=== PATIENT | male | born 1950 | race Caucasian/White ===

== ENCOUNTER → 2017-06-11 | Outpatient (CLI) | payer OTHER ==
[~2017-06-11] MED LIST: ALPR1TAB3 PO; ASPI81TA28 PO; BIOF500T PO; CHOL1000 PO; ENAL5TAB83 PO; IBUP-1277 PO; KRIL1CAP3 PO; MAGN400T5 PO; METO-478 PO; OMEP20CA9 PO; RANI300T PO
--- NOTE | 2017-06-11 12:01 | DIAGNOSTIC IMAGING REPORT ---
KUB CLINICAL HISTORY: R10.9 Flank painR10.31 Bilateral lower abdominal [id number] COMPARISON STUDY: No previous studies for comparison. FINDINGS: The soft tissues, psoas shadows, renal outlines and intestinal gas pattern appear normal. There is no evidence for bowel obstruction. No abnormal abdominal calcifications are seen. IMPRESSION: Normal study. The above report was generated using voice recognition software. It may contain grammatical, syntax or spelling errors. Electronically signed by: Arsh Pollack M.D. 06/11/2017 11:59 AM Dictated Date/Time: 06/11/2017 11:59 AM
== END | disposition home or self-care (01) ==
LOC: C.RAD 11:24
PROVIDERS: ATTEND Urology
DX: R10.31 Right lower quadrant pain (principal); R10.32 Left lower quadrant pain

== ENCOUNTER → 2017-06-30 | Outpatient (CLI) | payer OTHER ==
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
--- NOTE | 2017-06-30 15:46 | DIAGNOSTIC IMAGING REPORT ---
MRI OF THE LUMBAR SPINE WITHOUT IV CONTRAST CLINICAL HISTORY: Lumbar radiculopathy. Neuropathy of the right foot. COMPARISON STUDY: No priors. TECHNIQUE: MRI of the lumbar spine is performed utilizing various T1 and T2-weighted sequences in the axial and sagittal planes. IV contrast was not administered for this examination. FINDINGS: Lumbar spine: Vertebral body height and alignment are maintained throughout the lumbar spine. There is mild straightening of the lumbar lordosis. Marrow signal intensity is slightly heterogeneous. No destructive bony lesion is seen. The transverse and spinous processes are intact as visualized. There is no evidence of spondylolysis. No destructive bony process is identified. Tiny anterior osteophytes are seen throughout. Mild chronic degenerative endplate change is seen at several levels. A tiny hemangioma is suggested in the body of L3. Intervertebral discs: Degenerative disc desiccation is seen throughout the lumbar spine. Mild loss of height is seen at L4-L5 and L5-S1. Spinal cord: The visualized spinal cord is normal in morphology and signal intensity. The conus medullaris terminates at the T12-L1 interspace. The nerve roots of the cauda equina are normal in morphology. L1-L2: Unremarkable. L2-L3: Unremarkable. L3-L4: Unremarkable. L4-L5: There is a small posterior disc bulge. There is no significant acquired compromise of the central canal. There is mild bilateral subarticular stenosis. This likely impinges on the exiting right L4 nerve root. This also abuts the transiting bilateral L5 nerve roots. L5-S1: There is minimal posterior disc bulge. The central canal is patent. There is mild bilateral subarticular stenosis, right greater than left. The neural foramina are patent. Sacrum: The visualized sacrum is normal in morphology and signal intensity. Soft tissues: The paraspinous soft tissues are normal in appearance. The partially visualized retroperitoneal structures are grossly unremarkable but incompletely assessed. IMPRESSION: 1. There is no disc herniation or significant acquired compromise of the central canal. 2. Degenerative disc disease as above, greatest at L4-L5. See discussion for detailed level by level analysis. 3. No destructive bony lesion is seen. Dictated: 06/30/2017 2:53 PM Transcribed: 06/30/2017 3:46 PM [facility] Electronically signed by: Rajeev Tellez M.D. 07/01/2017 4:29 PM Dictated Date/Time: 06/30/2017 2:53 PM
== END | disposition home or self-care (01) ==
LOC: C.MRI 13:42
PROVIDERS: ATTEND Psychiatry & Neurology Neurology
DX: M54.17 Radiculopathy, lumbosacral region (principal); M79.671 Pain in right foot; M51.36 Other intervertebral disc degeneration, lumbar region

== ENCOUNTER 2024-02-25 08:40 | Observation (INO) ==
--- NOTE | 2024-02-25 09:48 | Emergency Department Note ---
Impression & Plan Right-sided chest pain, Bilateral pulmonary embolism ED Provider Note ED Provider Note NAME: NATALIE COLVIN AGE:74 SEX: Male : 1950 ARRIVES VIA: Private vehicle INFORMANT: Patient ED PROVIDER(s): Lennie Rangel DO CHIEF COMPLAINT: Right-sided chest pain, recent diagnosis of left lower extremity DVT HPI: This is a 74-year-old male presents emergency department with family at bedside due to concern for worsening right lateral rib and chest pain/right flank pain as well as increased shortness of breath with exertion and increased fatigue. Patient states he noticed over the last several weeks left lower extremity calf pain. He finally went and saw his family doctor the beginning of the week and was referred for an outpatient ultrasound which was positive for DVT. He was started on Eliquis and began taking that Thursday evening. He states the Eliquis is making him very nauseated. He stated the pain in his right side feels worse, especially with deep breath, but also with movement. He states he is far more fatigued and out of breath with any movement compared to normal. 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 He states his resting heart rate is typically in the 50s. He states at home it has been in the 80s and upwards of 100 which is abnormal for him. Since starting the Eliquis he has not noticed bleeding from any source. He states he is still having left calf pain. PAST MEDICAL HISTORY:See Below PAST SURGICAL HISTORY:See Below FAMILY HISTORY:See Below SOCIAL HISTORY:See Below HOME MEDICATIONS:See Below ALLERGIES:See Below VITALS:See Below PHYSICAL EXAMINATION: GENERAL: alert, well appearing, well nourished, no distress, non-toxic EYE EXAM: normal conjunctiva, PERRL and EOM's grossly intact OROPHARYNX: no exudate, no erythema, lips, buccal mucosa, and tongue normal and mucous membranes are moist NECK: supple, no nuchal rigidity, no adenopathy, non-tender LUNGS: Clear to auscultation. Normal chest wall mechanics, no w/r/r HEART: no murmurs, S1 normal and S2 normal, no pain with palpation over the ribs ABDOMEN: abdomen soft, non-tender, normo-active bowel sounds, no masses, no rebound or guarding. SKIN: no rashes, petechiae, orbruising UPPER EXTREMITIES: upper extremities are grossly normal. FROM, nml pulses b/l. LOWER EXTREMITIES: No pitting edema. FROM, nml pulses b/l. NEURO EXAM: Normal sensorium, cranial nerves II-XII grossly intact, normal speech, no facial droop,nogross weakness of arms, no gross weakness of legs. Gross sensation intact. No ataxia. Vital Signs: reviewed and remarkable Differential Diagnosis: acute coronary syndrome, pericarditis, pulmonary embolus, aortic dissection, pneumonia, pneumothorax, musculoskeletal pain, shingles, GERD, GI bleed, as well as others were considered MEDICAL DECISION MAKING: This is a 74-year-old male presents emergency room due to concern for right flank and right posterior rib pain, increased difficulty breathing with any exertion, and increased fatigue. Patient with recent outpatient diagnosis of left lower extremity DVT and started on Eliquis. Labs drawn and sent, IV established, EKG performed at bedside interpreted me and patient monitored on telemetry. He was sent for CT angiography of the chest which revealed bilateral lower lobe PEs. Patient does have a prior history of malignancy. PESI score elevated. Other than malignancy unclear etiology and no other known risk factors. Patient is otherwise active. Will heart rate normal here, it is elevated for him. No hypoxia with exertion however hypoxia noted at rest. Case discussed with the hospitalist team due to concern for hypoxia noted by who is a nurse at bedside and elevated PESI score. Did update the patient's PCP additionally who had seen him earlier this week in the office. Consultation(s): 0100: Discussed with DR. Watkins, pt's PCP. 1500: Discussed with Dr. Howell, [place] hospitalist team, for additional evaluation. ER Treatment Provided: See below 0115: No hypoxia with ambulatory trial. Patient's noted hypoxia when patient was asleep down to 83%. She would wake him and he would take a few deep breaths and oxygenation but improved. Diagnostics Interpreted By Me: -ECG: Normal sinus at 77, normal axis, normal intervals, no acute ST/T wave changes -Cardiac Monitoring: An order was placed for continuous cardiac monitoring. The monitor shows a rate of 80 with normal sinus rhythm. -Laboratory studies: As stated above and show below. Triage Nursing Note Reviewed Prior/Outside Records Reviewed Past Med/Surg History Problem List (Updated 02/26/24 @ 08:28 by Lennie Rangel, DO) Bilateral pulmonary embolism (Acute) Pulmonary emboli Right-sided chest pain (Acute) Rectal or anal pain Dizziness Ventricular tachycardia History of prostate cancer (Chronic 08/2020) s/p radiation Tinnitus Dysphonia Chronic kidney disease, stage 3 (moderate) GERD (gastroesophageal reflux disease) TMJ disorder involving articular disc abnormality Internal hemorrhoids Dysphagia Pulmonary nodule PCP monitors Elevated PSA BPH with urinary obstruction Neuropathy, idiopathic Feet Hemochromatosis carrier Arthritis Laryngopharyngeal reflux Hypertension Anxiety Medical History PONV (postoperative nausea and vomiting) History of TMJ disorder History of tinnitus Pulmonary nodule Neuropathy of both feet Hypertension Hemochromatosis carrier GERD (gastroesophageal reflux disease) Chronic kidney disease, stage 3 BPH (benign prostatic hyperplasia) Osteoarthritis Anxiety History of ventricular tachycardia Cervicalgia Spermatocele Burning tongue [place] esophagitis Prostate cancer (09/10/20) History of COVID-19 Duodenal ulcer Gastritis Intestinal metaplasia of gastric cardia Hx of colonic polyp Internal hemorrhoid Surgical History History of decompression of ulnar nerve (10/23/23) History of prostate biopsy History of anesthesia reaction History of esophagogastroduodenoscopy (EGD) History of colonoscopy [place] teeth removed History of chest tube placement Family History Father Hypertension Prostate cancer Mother Allergies Thyroid disease Osteoporosis Sister No problems noted. Sister No problems noted. Son No problems noted. Daughter No problems noted. Daughter No problems noted. Daughter Anxiety Other No family history of adverse response to anesthesia No family history of bleeding disorder Denies family history of Ovarian cancer Crohn's disease Breast cancer Colorectal cancer Ulcerative colitis Social History Smoking Status: Former smoker Tobacco Type: Cigarettes Age Started Using Tobacco: 17; Age Quit Using Tobacco: 36; packs per day: 2; Cigarettes Per Day: Stopped smoking in 1987; Second Hand Exposure: No; Do You Dip or Chew Tobacco: No; Hx Alcohol Use: Yes Alcohol type: beer Alcohol Intake Frequency: 4 or More x per/Week Alcohol Intake Frequency Comment: 2 beers per day Hx Substance Use: No Preferred Language: Citizen Of [place] Communication Ability: Effective Visual Impairment: No Limitations Hearing Ability: Normal Warhead Maintenance Specialist Required: No Beliefs That Will Affect Care: None marital status: Current Living Situation: Spouse current occupational status: retired 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 [employer] How many Children do You have: 4 Other Information That Helps Us Care for You: No Feels Safe at Home: Yes Safety Concerns: Feels Safe At This Time Childhood Exposure to Second-Hand Smoke: Yes Diet: regular Diet Comment: regular caffeine: Yes (Green tea;) during the past year weight has: remained stable Dental Care, Regularly: Yes Physical Activity Frequency: Daily Physical Activity Frequency Comment: walks dog daily Seatbelt Use: always Sunscreen Use: Yes Assistive Devices: Glasses Allergies Allergies Allergy/AdvReac Type Severity Reaction Status Date / Time amoxicillin [From Augmentin] AdvReac Severe stomach Verified 02/23/24 10:31 upset, nausea, diarraha clavulanic acid AdvReac Severe stomach Verified 02/23/24 10:31 [From Augmentin] upset, nausea, diarraha cefdinir AdvReac Intermediate Diarrhea Verified 02/23/24 10:31 dexamethasone AdvReac Intermediate Tachycardia Verified 02/23/24 10:31 doxycycline AdvReac Intermediate Stomach Verified 02/23/24 10:31 pain Latex, Natural Rubber AdvReac Intermediate Soreness Verified 02/23/24 10:31 in gums Home Meds Home Medications Medication Instructions Recorded Confirmed cholecalciferol (vitamin D3) 25 25 mcg PO QAM 06/04/23 02/25/24 mcg (1,000 unit) tablet (Vitamin D3) krill 1,000 mg-omega-3 170 mg-dha 1 cap PO QAM 06/04/23 02/25/24 50 mg-epa 80 [id number] capsule (krill oil) magnesium 250 mg tablet 250 mg PO QDL 06/04/23 02/25/24 vitamin B complex 1 tab PO QAM 06/04/23 02/25/24 famotidine 20 mg tablet 20 mg PO QPM 10/27/23 02/25/24 hydrocortisone 2.5 % topical cream 1 applic VT BID PRN hemorrhoids 10/27/23 02/25/24 with perineal applicator (Anusol-HC) multivitamin with minerals 1 tab PO BID 11/19/23 02/25/24 loratadine 10 mg tablet (Claritin) 10 mg PO QAM PRN Allergies 02/01/24 02/25/24 enalapril maleate 10 mg tablet 10 mg PO QAM 02/17/24 02/25/24 (Vasotec) hydrocortisone acetate 25 mg 25 mg VT DAILY PRN Rectal pain 02/17/24 02/25/24 rectal suppository (Anusol-HC) Previous Rx's Medication Instructions Recorded sildenafil 100 mg tablet 100 mg PO DAILY PRN sexual 03/11/23 activity #20 tabs azelastine 137 mcg (0.1 %) nasal 1 spray intranasal Q12H #30 mL 09/24/23 spray gabapentin 100 mg capsule 100 mg PO BID #180 caps 12/14/23 metoprolol succinate 25 mg 25 mg PO QPM #90 tabs 01/26/24 tablet,extended release 24 hr fluticasone propionate 50 2 spray intranasal DAILY PRN Nasal 02/01/24 mcg/actuation nasal Congestion #16 grams spray,suspension peg 3350-sod sulf,[id number] See Rx Instructions PO .COMPLEX #2 02/16/24 178.7-7.3-0.5-1.12-0.9 gram oral mL soln (Suflave) alprazolam 1 mg tablet (Xanax) 1 mg PO QID #120 tabs 02/23/24 apixaban 5 mg (74 tabs) tablets in 5 mg PO BID #74 ea 02/23/24 a dose pack (Eliquis) nystatin 100,000 unit/mL oral 5 ml PO QID #200 mL 02/23/24 suspension Results & Data (ED) Vital Signs Vital Signs - 24 hr 02/25/24 08:52 02/25/24 09:02 02/25/24 09:18 Temperature 36.8 C Temperature Source Oral Pulse Rate 86 76 Pulse Rate [Apical] Pulse Rate [Exercises] Pulse Rate from SpO2 Sensor 76 Pulse Rhythm Regular Pulse Strength Normal Respiratory Rate 18 22 Respiratory Rate [Exercises] Respiratory Effort / Characteristics Non-Labored Spontaneous Respiratory Depth Normal Respiratory Pattern Regular Blood Pressure 135/86 Blood Pressure [Left Arm] Blood Pressure Mean 102 Blood Pressure Mean [Left Arm] Blood Pressure Position Sitting Pulse Oximetry 94 94 91 Pulse Oximetry [Exercises] Oxygen Delivery Method Room Air Room Air Sepsis Recent Fever Within 48 Hours No Sepsis New/Unexplained Change in Mental Status No Sepsis Action Taken by Nursing No Action Required 02/25/24 09:19 02/25/24 09:24 02/25/24 09:27 Temperature Temperature Source Pulse Rate 77 77 77 Pulse Rate [Apical] Pulse Rate [Exercises] Pulse Rate from SpO2 Sensor 77 Pulse Rhythm Pulse Strength Respiratory Rate 23 22 Respiratory Rate [Exercises] Respiratory Effort / Characteristics Respiratory Depth Respiratory Pattern Blood Pressure Blood Pressure [Left Arm] Blood Pressure Mean Blood Pressure Mean [Left Arm] Blood Pressure Position Pulse Oximetry 91 91 Pulse Oximetry [Exercises] Oxygen Delivery Method Sepsis Recent Fever Within 48 Hours Sepsis New/Unexplained Change in Mental Status Sepsis Action Taken by Nursing 02/25/24 09:30 02/25/24 09:39 02/25/24 09:48 Temperature Temperature Source Pulse Rate 85 79 Pulse Rate [Apical] Pulse Rate [Exercises] Pulse Rate from SpO2 Sensor 79 Pulse Rhythm Pulse Strength Respiratory Rate 22 19 Respiratory Rate [Exercises] Respiratory Effort / Characteristics Respiratory Depth Respiratory Pattern Blood Pressure 138/79 Blood Pressure [Left Arm] Blood Pressure Mean 92 Blood Pressure Mean [Left Arm] Blood Pressure Position Pulse Oximetry 94 92 Pulse Oximetry [Exercises] Oxygen Delivery Method Sepsis Recent Fever Within 48 Hours Sepsis New/Unexplained Change in Mental Status Sepsis Action Taken by Nursing 02/25/24 10:00 02/25/24 10:03 02/25/24 10:12 Temperature Temperature Source Pulse Rate 74 69 Pulse Rate [Apical] Pulse Rate [Exercises] Pulse Rate from SpO2 Sensor 75 69 Pulse Rhythm Pulse Strength Respiratory Rate 19 22 Respiratory Rate [Exercises] Respiratory Effort / Characteristics Respiratory Depth Respiratory Pattern Blood Pressure 138/86 Blood Pressure [Left Arm] Blood Pressure Mean 93 Blood Pressure Mean [Left Arm] Blood Pressure Position Pulse Oximetry 92 93 Pulse Oximetry [Exercises] Oxygen Delivery Method Sepsis Recent Fever Within 48 Hours Sepsis New/Unexplained Change in Mental Status Sepsis Action Taken by Nursing 02/25/24 10:21 02/25/24 10:39 02/25/24 11:00 Temperature Temperature Source Pulse Rate 65 69 Pulse Rate [Apical] Pulse Rate [Exercises] Pulse Rate from SpO2 Sensor 67 68 Pulse Rhythm Pulse Strength Respiratory Rate 19 21 Respiratory Rate [Exercises] Respiratory Effort / Characteristics Respiratory Depth Respiratory Pattern Blood Pressure 132/79 Blood Pressure [Left Arm] Blood Pressure Mean 101 Blood Pressure Mean [Left Arm] Blood Pressure Position Pulse Oximetry 92 94 Pulse Oximetry [Exercises] Oxygen Delivery Method Sepsis Recent Fever Within 48 Hours Sepsis New/Unexplained Change in Mental Status Sepsis Action Taken by Nursing 02/25/24 11:51 02/25/24 12:00 02/25/24 12:12 Temperature Temperature Source Pulse Rate 65 63 Pulse Rate [Apical] 67 Pulse Rate [Exercises] Pulse Rate from SpO2 Sensor 65 63 Pulse Rhythm Pulse Strength Respiratory Rate 22 17 19 Respiratory Rate [Exercises] Respiratory Effort / Characteristics Respiratory Depth Respiratory Pattern Blood Pressure 142/80 H Blood Pressure [Left Arm] 121/74 Blood Pressure Mean 100 Blood Pressure Mean [Left Arm] 89 Blood Pressure Position Pulse Oximetry 92 93 92 Pulse Oximetry [Exercises] Oxygen Delivery Method Room Air Sepsis Recent Fever Within 48 Hours Sepsis New/Unexplained Change in Mental Status Sepsis Action Taken by Nursing 02/25/24 12:21 02/25/24 12:30 02/25/24 12:32 Temperature Temperature Source Pulse Rate 68 Pulse Rate [Apical] Pulse Rate [Exercises] Pulse Rate from SpO2 Sensor 69 Pulse Rhythm Pulse Strength Respiratory Rate 20 Respiratory Rate [Exercises] Respiratory Effort / Characteristics Respiratory Depth Respiratory Pattern Blood Pressure 141/76 H Blood Pressure [Left Arm] 141/76 H Blood Pressure Mean 104 Blood Pressure Mean [Left Arm] 97 Blood Pressure Position Pulse Oximetry 93 Pulse Oximetry [Exercises] Oxygen Delivery Method Sepsis Recent Fever Within 48 Hours Sepsis New/Unexplained Change in Mental Status Sepsis Action Taken by Nursing 02/25/24 12:36 02/25/24 13:03 02/25/24 13:12 Temperature Temperature Source Pulse Rate 72 68 Pulse Rate [Apical] Pulse Rate [Exercises] 76 Pulse Rate from SpO2 Sensor 73 68 Pulse Rhythm Pulse Strength Respiratory Rate 14 16 Respiratory Rate [Exercises] 18 Respiratory Effort / Characteristics Respiratory Depth Respiratory Pattern Blood Pressure Blood Pressure [Left Arm] Blood Pressure Mean Blood Pressure Mean [Left Arm] Blood Pressure Position Pulse Oximetry 92 94 Pulse Oximetry [Exercises] 96 Oxygen Delivery Method Room Air Sepsis Recent Fever Within 48 Hours Sepsis New/Unexplained Change in Mental Status Sepsis Action Taken by Nursing 02/25/24 13:18 02/25/24 13:21 02/25/24 13:33 Temperature Temperature Source Pulse Rate 73 67 65 Pulse Rate [Apical] Pulse Rate [Exercises] Pulse Rate from SpO2 Sensor 67 65 Pulse Rhythm Pulse Strength Respiratory Rate 22 Respiratory Rate [Exercises] Respiratory Effort / Characteristics Respiratory Depth Respiratory Pattern Blood Pressure Blood Pressure [Left Arm] Blood Pressure Mean Blood Pressure Mean [Left Arm] Blood Pressure Position Pulse Oximetry 94 95 Pulse Oximetry [Exercises] Oxygen Delivery Method Sepsis Recent Fever Within 48 Hours Sepsis New/Unexplained Change in Mental Status Sepsis Action Taken by Nursing 02/25/24 13:48 02/25/24 13:51 02/25/24 14:03 Temperature Temperature Source Pulse Rate 67 66 68 Pulse Rate [Apical] Pulse Rate [Exercises] Pulse Rate from SpO2 Sensor 67 67 68 Pulse Rhythm Pulse Strength Respiratory Rate 22 18 16 Respiratory Rate [Exercises] Respiratory Effort / Characteristics Respiratory Depth Respiratory Pattern Blood Pressure Blood Pressure [Left Arm] Blood Pressure Mean Blood Pressure Mean [Left Arm] Blood Pressure Position Pulse Oximetry 93 94 94 Pulse Oximetry [Exercises] Oxygen Delivery Method Sepsis Recent Fever Within 48 Hours Sepsis New/Unexplained Change in Mental Status Sepsis Action Taken by Nursing 02/25/24 14:18 02/25/24 14:36 02/25/24 14:42 Temperature Temperature Source Pulse Rate 74 68 65 Pulse Rate [Apical] Pulse Rate [Exercises] Pulse Rate from SpO2 Sensor 68 65 Pulse Rhythm Pulse Strength Respiratory Rate 19 18 22 Respiratory Rate [Exercises] Respiratory Effort / Characteristics Respiratory Depth Respiratory Pattern Blood Pressure Blood Pressure [Left Arm] Blood Pressure Mean Blood Pressure Mean [Left Arm] Blood Pressure Position Pulse Oximetry 94 92 Pulse Oximetry [Exercises] Oxygen Delivery Method Sepsis Recent Fever Within 48 Hours Sepsis New/Unexplained Change in Mental Status Sepsis Action Taken by Nursing 02/25/24 14:51 Temperature Temperature Source Pulse Rate 67 Pulse Rate [Apical] Pulse Rate [Exercises] Pulse Rate from SpO2 Sensor Pulse Rhythm Pulse Strength Respiratory Rate 21 Respiratory Rate [Exercises] Respiratory Effort / Characteristics Respiratory Depth Respiratory Pattern Blood Pressure Blood Pressure [Left Arm] Blood Pressure Mean Blood Pressure Mean [Left Arm] Blood Pressure Position Pulse Oximetry Pulse Oximetry [Exercises] Oxygen Delivery Method Sepsis Recent Fever Within 48 Hours Sepsis New/Unexplained Change in Mental Status Sepsis Action Taken by Nursing Laboratory Data 02/25/24 09:12 02/25/24 09:12 Lab Results 02/25/24 02/25/24 Range/Units 09:12 12:32 WBC 9.18 (4.8-10.8) K/ul RBC 5.30 (4.70-6.10) M/uL Hgb 16.4 (14.0-18.0) g/dl Hct 47.6 (42.0-52.0) % MCV 89.8 (80.0-100.0) fL MCH 30.9 (25.0-34.0) pg MCHC 34.5 (32.0-36.0) g/dL RDW Std Deviation 40.2 (36.4-46.3) fL RDW Coeff of Prachi 12.3 (11.5-14.5) % Plt Count 195 (130-400) K/uL MPV 10.6 (9.4-12.4) fL Immature Gran % (Auto) 0.5 % Neut % (Auto) 65.8 % Lymph % (Auto) 20.2 % [place] % (Auto) 11.9 % Eos % (Auto) 1.1 % Baso % (Auto) 0.5 % Neut # (Auto) 6.04 (1.40-6.50) K/uL Lymph # (Auto) 1.85 (1.20-3.40) K/uL [place] # (Auto) 1.09 H (0.11-0.59) K/uL Eos # (Auto) 0.10 (0.00-0.50) K/uL Baso # (Auto) 0.05 (0.00-0.20) K/uL Immature Gran # (Auto) 0.05 (0.01-0.20) K/uL PT 10.9 (9.0-12.0) Seconds INR 1.0 (0.9-1.1) Sodium 137 (136-145) mmol/L Potassium 3.8 (3.5-5.1) mmol/L Chloride 100 (98-107) mmol/L Carbon Dioxide 31 (21-32) mmol/L Anion Gap 6 (3-11) BUN 15 (6-23) mg/dl Creatinine 1.23 (0.6-1.4) mg/dl Est Cr Clr Drug Dosing 45.8 ml/min eGFR 61.61 BUN/Creatinine Ratio 12.2 (10-20) Glucose 108 H (70-99(Fasting)) mg/dl Calcium 9.4 (8.6-10.3) mg/dl Magnesium 1.9 (1.7-2.4) mg/dl Total Bilirubin 0.9 (0.2-1.0) mg/dl AST 17 (13-39) U/L ALT 14 (7-52) U/L Alkaline Phosphatase 79 (34-104) U/L Troponin I High Sens 4.8 (0-20) pg/ml Total Protein 7.5 (6.0-8.3) gm/dl Albumin 4.3 (3.4-5.0) gm/dl Globulin 3.2 (2.5-4.0) gm/dl Albumin/Globulin Ratio 1.3 (0.9-2) Urine Color Yellow Urine Appearance Clear (Clear) Urine pH 6.0 (4.5-7.5) Ur Specific Taylor 1.025 (1.000-1.030) Urine Protein Negative (Negative) Urine Glucose (UA) Negative (Negative) Urine Ketones Negative (Negative) Urine Blood Negative (Negative) Urine Nitrite Negative (Negative) Urine Bilirubin Negative (Negative) Urine Urobilinogen Negative (Negative) Ur Leukocyte Esterase Negative (Negative) Administered Medications Acetaminophen (Acetaminophen 325 Mg Tab) 650 mg PO Q4H PRN PRN Reason: Pain or Fever Stop: 03/26/24 17:28 Last Admin: 02/25/24 18:09 Dose: 650 mg Documented By: SOPHIA Alprazolam (Alprazolam 0.5 Mg Tablet) 1 mg PO QID [facility] Stop: 03/26/24 17:28 Last Admin: 02/25/24 19:55 Dose: 1 mg Documented By: Admin: 02/25/24 18:04 Dose: Not Given Documented By: SOPHIA Apixaban (Apixaban 5 Mg Tablet) 10 mg PO BID [facility] Stop: 02/29/24 21:01 Last Admin: 02/25/24 19:55 Dose: 10 mg Documented By: ALEJANDRA Famotidine (Famotidine 20 Mg Tab) 20 mg PO QPM [facility] Stop: 03/26/24 20:59 Last Admin: 02/25/24 19:56 Dose: 20 mg Documented By: ALEJANDRA Gabapentin (Gabapentin 100 Mg Cap) 100 mg PO BID [facility] Stop: 03/26/24 20:59 Last Admin: 02/25/24 19:55 Dose: 100 mg Documented By: ALEJANDRA Metoprolol Succinate (Metoprolol Succ 25mg Ext Rel Tab) 25 mg PO QPM [facility] Stop: 03/26/24 20:59 Last Admin: 02/25/24 19:56 Dose: 25 mg Documented By: ALEJANDRA Tramadol HCl (Tramadol Hcl 50 Mg Tablet) 100 mg PO Q4H PRN PRN Reason: SEVERE Pain (7,8,9,10) Stop: 03/26/24 17:28 Last Admin: 02/26/24 01:59 Dose: 100 mg Documented By: ALEJANDRA Discontinued Medications Apixaban (Apixaban 5 Mg Tablet) 10 mg PO ONE STA Stop: 02/25/24 15:38 Last Admin: 02/25/24 16:57 Dose: 10 mg Documented By: SRL Sodium Chloride (Nss) 1,000 mls @ 125 mls/hr IV .Q8H RONALDO Stop: 03/26/24 09:44 Last Infusion: 02/25/24 15:48 Dose: Infused Documented By: Admin: 02/25/24 09:53 Dose: 125 mls/hr Documented By: ML Acetaminophen (Ofirmev) 1,000 mg in 100 mls @ 400 mls/hr IV NOW STA Stop: 02/25/24 09:58 Last Infusion: 02/25/24 10:08 Dose: Infused Documented By: Admin: 02/25/24 09:53 Dose: 400 mls/hr Documented By: ML Ioversol (Optiray 320 100ml) 120 ml IV ONCE ONE Stop: 02/25/24 11:18 Last Admin: 02/25/24 11:18 Dose: 120 ml Documented By: AW Imaging Data Radiologist's Impression: Chest CTA 02/25/24 09:44 CT angio chest PE protocol CT DOSE: 693.46 mGy.cm HISTORY: 74 years-old Male with PE. Acute shortness of breath TECHNIQUE: Multiple CTA images of the chest were obtained after the intravenous administration of 120 ml Optiray. Coronal and sagittal MIPS were obtained from the axial data set and were submitted for review. All measurements were obtained according to NASCET criteria. A dose lowering technique was utilized adhering to the principles of ALARA. COMPARISON: 08/12/2021 FINDINGS: CTA: Mild cardiomegaly. No pericardial effusion or thoracic aortic aneurysm. Respiratory motion artifact limits evaluation of the pulmonary arterial tree. Bilateral segmental and subsegmental pulmonary emboli most pronounced in the lower lobes. CT CHEST: Trace right pleural effusion. No pneumothorax. Dependent bibasilar groundglass densities suggestive of atelectasis. No large pulmonary infarct. Central airways appear patent. The small scattered bilateral solid pulmonary nodules measuring up to 4 mm are better seen on the prior study. No acute upper abdominal abnormality. No acute fracture. IMPRESSION: 1. Cardiomegaly with lower lobe predominant segmental and subsegmental pulmonary emboli. 2. Bibasilar groundglass densities favor atelectasis. 3. No large pulmonary infarcts. ACT 112: Negative or not required by law. The above report was generated using voice recognition software. It may contain grammatical, syntax or spelling errors. Electronically signed by: Zain Smith M.D. 02/25/2024 11:58 AM Discharge Plan Visit Data Chief Complaint: Shortness of Breath/Dyspnea Stated Complaint: SOB, R SIDE PAIN, HAS BLOOD CLOT IN L CALF ED Provider: Lennie Rangel Discharge Problem: Right-sided chest pain, Bilateral pulmonary embolism Patient Disposition: Admitted As Inpatient Discharge Instructions Interventions: ED Discharge Assessment Last Done: 02/25/24 16:55
[2024-02-25] MEDS: ACETAMINOPHEN 1,000 MG/100 ML VIAL IV STA (09:53)
[2024-02-25] MEDS: SODIUM CHLORIDE 0.9% 1,000 ML IV SCH (09:53)
[2024-02-25 10:29] LABS: Basophils # (auto) 0.05 K/uL (0.00-0.20); Basophils % (auto) 0.5 %; Eosinophils % (auto) 1.1 %; Hematocrit (blood only) 47.6 % (42.0-52.0); Hemoglobin 16.4 g/dl (14.0-18.0); Immature Granulocytes # (auto) 0.05 K/uL (0.01-0.20); Immature Granulocytes % (auto) 0.5 %; Lymphocytes # (auto) 1.85 K/uL (1.20-3.40); Lymphocytes % (auto) 20.2 %; Mean Corpuscular Hemoglobin 30.9 pg (25.0-34.0); Mean Corpuscular Hgb Conc 34.5 g/dL (32.0-36.0); Mean Corpuscular Volume 89.8 fL (80.0-100.0); Mean Platelet Volume 10.6 fL (9.4-12.4); Monocytes # (auto) 1.09 K/uL (0.11-0.59); Monocytes % (auto) 11.9 %; Neutrophils # (auto) 6.04 K/uL (1.40-6.50); Neutrophils % (auto) 65.8 %; Platelet Count 195 K/uL (130-400); RDW Coefficient of Variation 12.3 % (11.5-14.5); RDW Standard Deviation 40.2 fL (36.4-46.3); White Blood Count 9.18 K/ul (4.8-10.8)
[2024-02-25 10:47] LABS: Albumin Globulin Ratio 1.3 (0.9-2); Albumin Level 4.3 gm/dl (3.4-5.0); BUN Creatinine Ratio 12.2 (10-20); Bilirubin,Total 0.9 mg/dl (0.2-1.0); Calcium 9.4 mg/dl (8.6-10.3); Creatinine Clr Calc Pharmacy 45.8 ml/min; Globulin 3.2 gm/dl (2.5-4.0); Magnesium 1.9 mg/dl (1.7-2.4); Potassium 3.8 mmol/L (3.5-5.1); Total Protein 7.5 gm/dl (6.0-8.3)
[2024-02-25 10:54] LABS: Troponin I High Sensitivity 4.8 pg/ml (0-20)
[2024-02-25 10:55] LABS: Prothrombin Time 10.9 Seconds (9.0-12.0)
[2024-02-25] MEDS: OPTIRAY 320 100ml IV ONE (11:18)
--- NOTE | 2024-02-25 12:00 | CT Scan Report ---
CT angio chest PE protocol CT DOSE: 693.46 mGy.cm HISTORY: 74 years-old Male with PE. Acute shortness of breath TECHNIQUE: Multiple CTA images of the chest were obtained after the intravenous administration of 120 ml Optiray. Coronal and sagittal MIPS were obtained from the axial data set and were submitted for review. All measurements were obtained according to NASCET criteria. A dose lowering technique was u tilized adhering to the principles of ALARA. COMPARISON: 08/12/2021 FINDINGS: CTA: Mild cardiomegaly. No pericardial effusion or thoracic aortic aneurysm. Respiratory motion artifact l imits evaluation of the pulmonary arterial tree. Bilateral segmental and subsegmental pulmonary embol i most pronounced in the lower lobes. CT CHEST: Trace right pleural effusion. No pneumothorax. Dependent bibasilar groundglass densities suggestive o f atelectasis. No large pulmonary infarct. Central airways appear patent. The small scattered bilater al solid pulmonary nodules measuring up to 4 mm are better seen on the prior study. No acute upper abdominal abnormality. No acute fracture. IMPRESSION: 1. Cardiomegaly with lower lobe predominant segmental and subsegmental pulmonary emboli. 2. Bibasilar groundglass densities favor atelectasis. 3. No large pulmonary infarcts. ACT 112: Negative or not required by law. The above report was generated using voice recognition software. It may contain grammatical, syntax o r spelling errors. Electronically signed by: Zain Smith M.D. 02/25/2024 11:58 AM
[2024-02-25 12:53] LABS: Appearance Urine Clear (Clear); Bilirubin Urine Negative (Negative); Blood Urine Negative (Negative); Color Urine Yellow; Glucose Urine UA Negative (Negative); Ketones Urine Negative (Negative); Leukocyte Esterase Urine Negative (Negative); Nitrite Urine Negative (Negative); Protein Urine Negative (Negative); Specific Gravity Urine 1.025 (1.000-1.030); Urobilinogen Urine Negative (Negative)
--- NOTE | 2024-02-25 16:32 | Electrocardiogram Report ---
Test Reason : Blood Pressure : */* mmHG Vent. Rate : 77 BPM Atrial Rate : 77 BPM P-R Int : 134 ms QRS Dur : 78 ms QT Int : 368 ms P-R-T Axes : 20 -4 21 degrees QTcB Int : 416 ms Normal sinus rhythm Low voltage QRS Poor R wave progression, consider anterior MA vs. lead placement vs. LVH Borderline ECG When compared with ECG of 08-Jul-2023 10:12, (unconfirmed) T wave amplitude has decreased in Anterior leads Confirmed by Randy Day ([id number]) on 02/25/2024 4:31:50 PM Referred By: REFERRED SELF Confirmed By: Randy Day
[2024-02-25] MEDS: APIXABAN 5 MG TABLET PO STA (16:57)
[2024-02-25] MEDS ORDERED: traMADol HCL 50 MG TABLET PO PRN (17:29)
[2024-02-25] MEDS ORDERED: LORATADINE 10 MG TAB PO PRN (17:29)
[2024-02-25] MEDS: ALPRAZolam 0.5 MG TABLET PO SCH (18:04)
[2024-02-25] MEDS: ACETAMINOPHEN 325 MG TAB PO PRN (18:09)
[2024-02-25] MEDS: GABAPENTIN 100 MG CAP PO SCH (19:55)
[2024-02-25] MEDS: APIXABAN 5 MG TABLET PO SCH (19:55)
[2024-02-25] MEDS: FAMOTIDINE 20 MG TAB PO SCH (19:56)
[2024-02-25] MEDS: METOPROLOL SUCC 25MG EXT REL TAB PO SCH (19:56)
--- NOTE | 2024-02-25 23:31 | History & Physical Report ---
Date of Service February 25, 2024 Assessment & Plan (1) Pulmonary emboli: Plan: PESI score 114, high risk Recently started Eliquis for DVT, suspect some clots now present in lung from that DVT causing his pain and worsening symptoms - will continue on Eliquis Discussed pain from pleuritis but he wishes to avoid anything except acetaminophen, discussed if getting much worse overnight will give tramadol second line just as needed Main concern in the ER for hypoxia while he was falling asleep therefore plan to observe overnight for overnight pulse ox, will also order 2 step in AM Discussed expectations with regards to reduced exercise tolerance, pain and fatigue are all normal due to pulmonary emboli Incentive spirometer Plan Anxiety - takes Xanax regularly four times a day GERD - continue famotidine (notable history of gastric ulcer many years ago, no current concern for melena) History of VT - continue metoprolol succinate HTN - continue enalapril VTE prophylaxis - Eliquis Diet - regular Disposition - observation to med/tele Admission and Anticipated Discharge Date Admission Date: February 25, 2024 History of Present Illness Chief Complaint: Shortness of breath Primary Care Provider: DO Junaid Garcia Brandon is a 74 year old male who presents to the ER with right sided lateral and back chest pain. Pain is worse on deep inspiration and any movement. Associated shortness of breath on exertion and increased fatigue. Left lower extremity calf pain over the last few weeks and went to see his family physician who obtained ultrasound which was positive for deep vein thrombosis. He was started on Eliquis which he began on Thursday. When he took his dose last night he felt much worse with nausea and he was concerned his heart rate was 100 bpm at rest. He denies any abdominal pain, melena or hematochezia. Allergies Allergy/AdvReac Type Severity Reaction Status Date / Time amoxicillin [From Augmentin] AdvReac Severe stomach Verified 02/23/24 10:31 upset, nausea, diarraha clavulanic acid AdvReac Severe stomach Verified 02/23/24 10:31 [From Augmentin] upset, nausea, diarraha cefdinir AdvReac Intermediate Diarrhea Verified 02/23/24 10:31 dexamethasone AdvReac Intermediate Tachycardia Verified 02/23/24 10:31 doxycycline AdvReac Intermediate Stomach Verified 02/23/24 10:31 pain Latex, Natural Rubber AdvReac Intermediate Soreness Verified 10/01/24 10:31 in gums Home Medications Medication Instructions Recorded Confirmed Type sildenafil 100 mg tablet 100 mg PO DAILY PRN sexual 03/11/23 02/25/24 Rx activity #20 tabs cholecalciferol (vitamin D3) 25 25 mcg PO QAM 06/04/23 02/25/24 History mcg (1,000 unit) tablet (Vitamin D3) krill 1,000 mg-omega-3 170 mg-dha 1 cap PO QAM 06/04/23 02/25/24 History 50 mg-epa 80 hi-ntqxyu-touuq capsule (krill oil) magnesium 250 mg tablet 250 mg PO QDL 06/04/23 02/25/24 History vitamin B complex 1 tab PO QAM 06/04/23 02/25/24 History azelastine 137 mcg (0.1 %) nasal 1 spray intranasal Q12H #30 mL 09/24/23 02/25/24 Rx spray famotidine 20 mg tablet 20 mg PO QPM 10/27/23 02/25/24 History hydrocortisone 2.5 % topical cream 1 applic NC BID PRN hemorrhoids 10/27/23 02/25/24 History with perineal applicator (Anusol-HC) multivitamin with minerals 1 tab PO BID 11/19/23 02/25/24 History gabapentin 100 mg capsule 100 mg PO BID #180 caps 12/14/23 02/25/24 Rx metoprolol succinate 25 mg 25 mg PO QPM #90 tabs 01/26/24 02/25/24 Rx tablet,extended release 24 hr fluticasone propionate 50 2 spray intranasal DAILY PRN Nasal 02/01/24 02/25/24 Rx mcg/actuation nasal Congestion #16 grams spray,suspension loratadine 10 mg tablet (Claritin) 10 mg PO QAM PRN Allergies 02/01/24 02/25/24 History peg 3350-sod sulf,[id number]-[id number]-hhw See Rx Instructions PO .COMPLEX #2 02/16/24 02/25/24 Rx 178.7-7.3-0.5-1.12-0.9 gram oral mL soln (Suflave) enalapril maleate 10 mg tablet 10 mg PO QAM 02/17/24 02/25/24 History (Vasotec) hydrocortisone acetate 25 mg 25 mg NC DAILY PRN Rectal pain 02/17/24 02/25/24 History rectal suppository (Anusol-HC) alprazolam 1 mg tablet (Xanax) 1 mg PO QID #120 tabs 02/23/24 02/25/24 Rx apixaban 5 mg (74 tabs) tablets in 5 mg PO BID #74 ea 02/23/24 02/25/24 Rx a dose pack (Eliquis) nystatin 100,000 unit/mL oral 5 ml PO QID #200 mL 02/23/24 02/25/24 Rx suspension Past Med/Surg History Problem List (Updated 02/25/24 @ 23:25 by Shorty Howell MD) Pulmonary emboli Right-sided chest pain (Acute) Rectal or anal pain Dizziness Ventricular tachycardia History of prostate cancer (Chronic 08/2020) s/p radiation Tinnitus Dysphonia Chronic kidney disease, stage 3 (moderate) GERD (gastroesophageal reflux disease) TMJ disorder involving articular disc abnormality Internal hemorrhoids Dysphagia Pulmonary nodule PCP monitors Elevated PSA BPH with urinary obstruction Neuropathy, idiopathic Feet Hemochromatosis carrier Arthritis Laryngopharyngeal reflux Hypertension Anxiety Medical History PONV (postoperative nausea and vomiting) History of TMJ disorder History of tinnitus Pulmonary nodule Neuropathy of both feet Hypertension Hemochromatosis carrier GERD (gastroesophageal reflux disease) Chronic kidney disease, stage 3 BPH (benign prostatic hyperplasia) Osteoarthritis Anxiety History of ventricular tachycardia Cervicalgia Spermatocele Burning tongue Rosamaria esophagitis Prostate cancer (09/10/20) History of COVID-19 Duodenal ulcer Gastritis Intestinal metaplasia of gastric cardia Hx of colonic polyp Internal hemorrhoid Surgical History History of decompression of ulnar nerve (10/23/23) History of prostate biopsy History of anesthesia reaction History of esophagogastroduodenoscopy (EGD) History of colonoscopy [place] teeth removed History of chest tube placement Family History Father Hypertension Prostate cancer Mother Allergies Thyroid disease Osteoporosis Sister No problems noted. Sister No problems noted. Son No problems noted. Daughter No problems noted. Daughter No problems noted. Daughter Anxiety Other No family history of adverse response to anesthesia No family history of bleeding disorder Denies family history of Ovarian cancer Crohn's disease Breast cancer Colorectal cancer Ulcerative colitis Social History Smoking Status: Former smoker Tobacco Type: Cigarettes Age Started Using Tobacco: 17; Age Quit Using Tobacco: 36; packs per day: 2; Cigarettes Per Day: Stopped smoking in 1987; Second Hand Exposure: No; Do You Dip or Chew Tobacco: No; Hx Alcohol Use: Yes Alcohol type: beer Alcohol Intake Frequency: 4 or More x per/Week Alcohol Intake Frequency Comment: 2 beers per day Hx Substance Use: No Preferred Language: Belarusian Communication Ability: Effective Visual Impairment: No Limitations Hearing Ability: Normal Electrical Appliance Mechanic Required: No Beliefs That Will Affect Care: None marital status: Current Living Situation: Spouse current occupational status: retired 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 How many Children do You have: 4 Other Information That Helps Us Care for You: No Feels Safe at Home: Yes Safety Concerns: Feels Safe At This Time Childhood Exposure to Second-Hand Smoke: Yes Diet: regular Diet Comment: regular caffeine: Yes (Green tea;) during the past year weight has: remained stable Dental Care, Regularly: Yes Physical Activity Frequency: Daily Physical Activity Frequency Comment: walks dog daily Seatbelt Use: always Sunscreen Use: Yes Assistive Devices: Glasses Review of Systems Review of Systems: All systems reviewed & are unremarkable except as noted in HPI & below Physical Exam Constitutional: WD/WN, vitals as above Eyes: + anicteric sclerae; normal pupil size ENMT: external ear and nose normal, oropharynx normal Respiratory: normal respiratory effort, lungs clear to auscultation Cardiovascular: RRR, no murmur, no edema Extremities: normal capillary refill and + calf tenderness (b/l) Gastrointestinal (Abdomen): normal bowel sounds, soft, nontender, no hepatosplenomegaly Skin: no rashes, warm and dry Neurologic: moves all extremities and awake; not confused Psychiatric: A+Ox3, euthymic affect Results & Data Results & Data Vital Signs (Past 12 Hours) Vital Signs Temp Pulse Pulse Pulse Pulse Resp Resp 02/25/24 22:18 80 02/25/24 19:32 37.2 C 87 18 02/25/24 18:29 78 02/25/24 18:14 02/25/24 17:33 36.9 C 75 16 02/25/24 17:29 36.9 C 75 16 02/25/24 17:29 02/25/24 14:51 67 21 02/25/24 14:42 65 22 02/25/24 14:36 68 18 02/25/24 14:18 74 19 02/25/24 14:03 68 16 02/25/24 13:51 66 18 02/25/24 13:48 67 22 02/25/24 13:33 65 22 02/25/24 13:21 67 02/25/24 13:18 73 02/25/24 13:12 68 16 02/25/24 13:03 72 14 02/25/24 12:36 76 18 02/25/24 12:32 02/25/24 12:30 02/25/24 12:21 68 20 02/25/24 12:12 63 19 02/25/24 12:00 67 17 02/25/24 11:51 65 22 BP BP Pulse Ox Pulse Ox Pulse Ox Pulse Ox O2 Del Method 02/25/24 22:18 95 02/25/24 19:32 151/80 H 92 Room Air 02/25/24 18:29 02/25/24 18:14 Room Air 02/25/24 17:33 166/89 H 96 Room Air 02/25/24 17:29 166/89 H 96 Room Air 02/25/24 17:29 96 02/25/24 14:51 02/25/24 14:42 92 02/25/24 14:36 94 02/25/24 14:18 02/25/24 14:03 94 02/25/24 13:51 94 02/25/24 13:48 93 02/25/24 13:33 95 02/25/24 13:21 94 02/25/24 13:18 02/25/24 13:12 94 02/25/24 13:03 92 02/25/24 12:36 96 Room Air 02/25/24 12:32 141/76 H 02/25/24 12:30 141/76 H 02/25/24 12:21 93 02/25/24 12:12 92 02/25/24 12:00 121/74 93 Room Air 02/25/24 11:51 142/80 H 92 O2 Del Method O2 Del Method 02/25/24 22:18 Room Air 02/25/24 19:32 02/25/24 18:29 02/25/24 18:14 02/25/24 17:33 02/25/24 17:29 02/25/24 17:29 Room Air 02/25/24 14:51 02/25/24 14:42 02/25/24 14:36 02/25/24 14:18 02/25/24 14:03 02/25/24 13:51 02/25/24 13:48 02/25/24 13:33 02/25/24 13:21 02/25/24 13:18 02/25/24 13:12 02/25/24 13:03 02/25/24 12:36 02/25/24 12:32 02/25/24 12:30 02/25/24 12:21 02/25/24 12:12 02/25/24 12:00 02/25/24 11:51 Laboratory Results Abnormal lab results 02/25/24 Range/Units 09:12 [place] # (Auto) 1.09 H (0.11-0.59) K/uL Glucose 108 H (70-99(Fasting)) mg/dl Diagnostic Findings CT angio chest PE protocol CT DOSE: 693.46 mGy.cm HISTORY: 74 years-old Male with PE. Acute shortness of breath TECHNIQUE: Multiple CTA images of the chest were obtained after the intravenous administration of 120 ml Optiray. Coronal and sagittal MIPS were obtained from the axial data set and were submitted for review. All measurements were obtained according to NASCET criteria. A dose lowering technique was utilized adhering to the principles of ALARA. COMPARISON: 08/12/2021 FINDINGS: CTA: Mild cardiomegaly. No pericardial effusion or thoracic aortic aneurysm. Respiratory motion artifact limits evaluation of the pulmonary arterial tree. Bilateral segmental and subsegmental pulmonary emboli most pronounced in the lower lobes. CT CHEST: Trace right pleural effusion. No pneumothorax. Dependent bibasilar groundglass densities suggestive of atelectasis. No large pulmonary infarct. Central airways appear patent. The small scattered bilateral solid pulmonary nodules measuring up to 4 mm are better seen on the prior study. No acute upper abdominal abnormality. No acute fracture. IMPRESSION: 1. Cardiomegaly with lower lobe predominant segmental and subsegmental pulmonary emboli. 2. Bibasilar groundglass densities favor atelectasis. 3. No large pulmonary infarcts. Medications Administered ER medications given: Normal saline at 125 mL/h Acetaminophen 1000 mg IV ECG Rate (beats per minute): 77 Rhythm: normal sinus Findings: no acute ischemic change Comparison ECG Date: from (July 08, 2023) Change: the following changes noted (T wave amplitude decreased in anterior leads) Code Status & VTE Plan Code Status Full VTE Prophylaxis Plan VTE Prophylaxis will be ordered: Yes PG Care Time/CCT Total # of Minutes Spent Total Time Spent with Patient: Total time spent is greater than 50% in coordination of care (as documented) at patient's floor/unit and/or counseling patient: Coding Level of Care Code 42805 INT INP/OBS CARE 3/75MIN Diagnoses Multiple subsegmental pulmonary emboli without acute cor pulmonale I26.94 Pulmonary embolism type: multiple subsegmental (without acute cor pulmonale) (1) Pulmonary emboli Pulmonary embolism type: multiple subsegmental (without acute cor pulmonale) Qualified Code(s): I26.94 - Multiple subsegmental thrombotic pulmonary emboli without acute cor pulmonale
[2024-02-26] MEDS: traMADol HCL 50 MG TABLET PO PRN (01:59)
[2024-02-26] MEDS: FLUTICASONE PROPIONATE NA SPR 16 GM BTL NAE PRN (08:22)
[2024-02-26] MEDS: ENALAPRIL MALEATE 10 MG TAB PO SCH (08:24)
[2024-02-26] MEDS: MAGNESIUM OXIDE 400 MG TAB PO SCH (10:51)
[2024-02-26 11:53] VITALS: TEMP 99.7
[2024-02-26 14:01] VITALS: BP 152/83; PULSE 94; RESP 18; O2SAT 90
--- NOTE | 2024-02-29 08:19 | Discharge Summary ---
Discharge Summary Date of Service February 26, 2024 Principal Dx & Hospital Course #1 = Principal Diagnosis (1) Pulmonary emboli: PESI score 114, high risk Recently started Eliquis for DVT, suspect some clots now present in lung from that DVT causing his pain and worsening symptoms - will continue on Eliquis Discussed pain from pleuritis but he wishes to avoid anything except acetaminophen, discussed if getting much worse overnight will give tramadol sec ond line just as needed Discussed expectations with regards to reduced exercise tolerance, pain and fatigue are all normal due to pulmonary emboli Incentive spirometer Will discharge on eliquis Tylenol for breakthrough pain Plan Anxiety - takes Xanax regularly four times a day GERD - continue famotidine (notable history of gastric ulcer many years ago, no current concern for melena) History of VT - continue metoprolol succinate HTN - continue enalapril Admission HPI Per Admitting Provider Junaid Taylor is a 74 year old male who presents to the ER with right sided lateral and back chest pain. Pain is worse on deep inspiration and any movement. Associated shortness of breath on exertion and increased fatigue. Left lower extremity calf pain over the last few weeks and went to see his family physician who obtained ultrasound which was positive for deep vein thrombosis. He was started on Eliquis which he began on Thursday. When he took his dose last night he felt much worse with nausea and he was concerned his heart rate was 100 bpm at rest. He denies any abdominal pain, melena or hematochezia. Discharge Exam Constitutional: WD/WN, vitals as above Eyes: + anicteric sclerae; normal pupil size ENMT: external ear and nose normal, oropharynx normal Respiratory: normal respiratory effort, lungs clear to auscultation Cardiovascular: RRR, no murmur, no edema Gastrointestinal (Abdomen): normal bowel sounds, soft, nontender, no hepatosplenomegaly Skin: no rashes, warm and dry Neurologic: moves all extremities and awake; not confused Psychiatric: A+Ox3, euthymic affect Discharge Plan Discharge Items Patient Disposition: Home - Self-Care Reason For Visit: PULMONARY EMBOLI Discharge Diagnosis: pulmonary emboli Activity: Resume your previous activity Non-emergency contact: Primary Care Provider Call non-emergency contact if: you have any medication questions Follow-up/Referrals: Becca Watkins DO [Primary Care Provider] - Diet: Regular Addtl Attending Provider Instructions: Continue taking Eliquis twice a day 10 mg. Last dose Thursday morning. Then you will be taking 5 mg twice a day. You will be taking Tylenol around the clock every 6 hours. Take tramadol for breakthrough pain. Followup with PCP in 1-2 weeks. Pending Studies at Discharge: No Stand-Alone Forms: My [facility] Medify, Smoking Cessation Medications and DC Order Prescriptions: New tramadol 50 mg Tablet 50 mg PO Q4H PRN (Reason: pain (scale score 7-10)) Qty: 10 0RF acetaminophen 325 mg Tablet 650 mg PO QID Qty: 120 0RF Continued gabapentin 100 mg capsule 100 mg PO BID Qty: 180 1RF Rx Instructions: 100 mg PO twice a day; metoprolol succinate 25 mg tablet extended release 24 hr 25 mg PO QPM Qty: 90 3RF Suflave 178.7-7.3-0.5 gram recon soln See Rx Instructions PO .COMPLEX Qty: 2 0RF Rx Instructions: orally; TAKE FIRST DOSE AT 6 PM AND SECOND DOSE 6 HOURS PRIOR TO PROCEDURE BIN: [id number] N: [facility] GROUP: [id number] multivitamin with minerals Tablet,Chewable 1 tab PO BID Rx Instructions: SUPER BEES Beats, Bee ext, Grape Ext sildenafil 100 mg tablet 100 mg PO DAILY PRN (Reason: sexual activity) Qty: 20 11RF Rx Instructions: administer 30 minutes to 4 hours before activity fluticasone propionate 50 mcg/actuation spray,suspension 2 spray intranasal DAILY PRN (Reason: Nasal Congestion) Qty: 16 2RF Rx Instructions: administer into each nostril nystatin 100,000 unit/mL suspension 5 ml PO QID Qty: 200 1RF Rx Instructions: swish and swallow alprazolam [Xanax] 1 mg tablet 1 mg PO QID Qty: 120 0RF azelastine 137 mcg (0.1 %) aerosol,spray 1 spray intranasal Q12H Qty: 30 5RF Rx Instructions: administer into each nostril vitamin B complex Tablet 1 tab PO QAM magnesium 250 mg Tablet 250 mg PO QDL cholecalciferol (vitamin D3) [Vitamin D3] 25 mcg (1,000 unit) Tablet 25 mcg PO QAM [id number]-[id number]-[id number] [krill oil] 1,572-495-65-80 mg Capsule 1 cap PO QAM enalapril maleate [Vasotec] 10 mg tablet 10 mg PO QAM hydrocortisone acetate [Anusol-HC] 25 mg suppository 25 mg [place] DAILY PRN (Reason: Rectal pain) Rx Instructions: Please add lidocaine. hydrocortisone [Anusol-HC] 2.5 % cream with perineal applicator 1 applic TX BID PRN (Reason: hemorrhoids) famotidine 20 mg tablet 20 mg PO QPM loratadine [Claritin] 10 mg tablet 10 mg PO QAM PRN (Reason: Allergies) Eliquis 5 mg (74 tabs) tablets,dose pack 5 mg PO BID Qty: 74 0RF Rx Instructions: Start 10 mg by mouth twice daily x 7 days then 5 mg by mouth twice daily Discharge Orders: Discharge Order (Routine); Ordered 02/26/24 Ordered By: Pablo Meléndez/Other Patient Handouts: Tramadol Oral Tablet, Acetaminophen Oral Tablet Admission Data Admit Date/Time: 02/25/24 15:58 Attending Provider: Pablo Landeros Admit Provider: Shorty Howell Primary Care Provider: Becca Watkins Other Interventions: Discharge Summary Assessment (RN) Last Done: 02/26/24 13:59 Hospital Stay Data Diagnostic Imagining Performed 02/25/24 09:44 CT angio chest PE protocol Stat Pending Results Patient Have Any Pending Studies at Discharge: No Discharge Instructions Given to Patient (Per Discharging Provider) Continue taking Eliquis twice a day 10 mg. Last dose Thursday. Then you will be taking 5 mg twice a day. You will be taking Tylenol around the clock every 6 hours. Take tramadol for breakthrough pain. Followup with PCP in 1-2 weeks. Total Time Total Time Spent Total Time Spent (In Minutes): 32 Coding Level of Care Code 56607 INP/OBS DISCH >30 MIN Diagnoses Multiple subsegmental pulmonary emboli without acute cor pulmonale I26.94 Pulmonary embolism type: multiple subsegmental (without acute cor pulmonale)
--- NOTE | 2024-03-03 13:32 | Coding Query ---
A supporting diagnosis is required for the test/procedure performed on this patient in order for us to be reimbursed by the patient's insurance. Please provide a supporting diagnosis for the following test/procedure listed below next to the test name along with your signature. *If there is no additional diagnosis for this patient that would support the following test/procedure please document that below next to the test/procedure. Test(s)/Procedure(s) that require a supporting diagnosis: * 21340 PULSE OXIMETRY DIAGNOSIS: Nocturnal hypoxia DATE OF SERVICE: 02/25/24 Provider Signature: Date: Thank you Irvin Nick [facility] Information Management Once completed, please kindly fax back to [phone] For questions please call [phone] [facility]
== END 2024-02-26 14:20 | disposition home or self-care (01) ==
LOC: ED 08:40 → 2N 08:40 → SUATTDRO 15:58 → 2N 16:55